=== PATIENT | male | born 1990 | race African-American/Black ===

== ENCOUNTER 2019-02-25 10:41 | Day surgery (SDC) | payer MEDICAID ==
[2019-02-25] MEDS ORDERED: LIDOCAINE 2% INJ-PF (100 MG/5 ML) SYRINGE ONE (11:25)
[2019-02-25] MEDS ORDERED: MIDAZOLAM 2 MG/2 ML INJ ONE (11:26)
[2019-02-25] MEDS ORDERED: PROPOFOL INJ 200 MG/20 ML VIAL IV ONE (11:26)
[2019-02-25] MEDS ORDERED: KETAMINE HCL INJ 500 MG/10 ML VIAL ONE (11:26)
[2019-02-25] MEDS ORDERED: FENTANYL CITRATE INJ/PF 100 MCG/2 ML AMPUL ONE (11:26)
[2019-02-25] MEDS ORDERED: LIDOCAINE 2%/EPINEPHRINE INJ 1.7 ML CARTRIDGE ONE (12:45)
[2019-02-25] MEDS ORDERED: BUPIVACAINE HCL 0.5%/EPI 1:200000 INJ 1.8 ML CARTRIDGE ONE (12:46)
[2019-02-25] MEDS ORDERED: OXYMETAZOLINE HCL 0.05% NASAL SPRAY 15 ML BOTTLE ONE (13:05)
[2019-02-25] MEDS ORDERED: FENTANYL CITRATE INJ/PF 100 MCG/2 ML AMPUL IV PRN ×3 (13:33)
[2019-02-25] MEDS ORDERED: DIPHENHYDRAMINE HCL 50 MG/ML VIAL IV PRN (13:33)
[2019-02-25] MEDS ORDERED: MORPHINE SULFATE 10 MG/ML INJ IV PRN (13:33)
[2019-02-25] MEDS ORDERED: MEPERIDINE HCL/PF INJ 25 MG/1 ML DISP.SYRIN IV PRN (13:33)
[2019-02-25] MEDS ORDERED: PROMETHAZINE HCL INJ 25 MG/1 ML VIAL IV PRN ×2 (13:33)
[2019-02-25] MEDS ORDERED: ONDANSETRON HCL INJ/PF 4 MG/2 ML SDV ONE (13:44)
[2019-02-25] MEDS ORDERED: SUCCINYLCHOLINE CHLORIDE INJ 200 MG/10 ML VIAL ONE (13:44)
[2019-02-25] MEDS ORDERED: DEXAMETHASONE SOD PHOSPHATE INJ 4 MG/1 ML VIAL ONE (13:44)
--- NOTE | 2019-02-25 14:22 | Operative Report ---
Operative Report DATE OF SURGERY: 02/25/19 PREOPERATIVE DIAGNOSIS: Dental caries POSTOPERATIVE DIAGNOSIS: Same OPERATION: Surgical removal of teeth numbers 2, 3, 4, 5, 6, 9, 10, 11, 12, 13, 14, 20, 21, 22, 23, 25, 26, 27 and 28 and alveoloplasties of all 4 quadrants SURGEON: VIMAL LOW ANESTHESIA: GA TISSUE REMOVED OR ALTERED: Teeth and bone which were discarded COMPLICATIONS: None ESTIMATED BLOOD LOSS: 5 mL INTRAOPERATIVE FINDINGS: Nonrestorable teeth and poor oral hygiene PROCEDURE: The patient was brought into operating room #4 and placed on the operating room table in supine position. General anesthesia was induced via a peripheral IV and continued utilizing nasoendotracheal intubation. The patient was then prepped and draped in the usual fashion for an intraoral procedure. A total of 4 carpules of 2% Lidocaine with 1:100K Epi and 4 carpules of 0.5% Marcaine with 1:200K Epi were delivered to the planned surgical sites via both infiltration and nerve block. The oral cavity and oropharynx were suctioned and a moistened oropharyngeal throat pack was placed. A bite block was used throughout the procedure. Full thickness mucoperisteal flaps were elevated. Ostectomy was completed as needed. Teeth were delivered with elevators and forceps. Alveoloplasties were completed using rongeurs and bone files. All sites debrided and irrigated. No sinus exposure noted. Mandible intact post op. KIM not visualized. Wounds reapproximated and sutured with 4-0 chromic gut. The oral cavity was suctioned and found to be free of debris. The throat pack was removed. The oropharynx was suctioned. Gauze packs were placed bilaterally to aid in continued hemastasis. The patient was awakened from general anesthesia, extubated in the operating room and taken to recovery in spontaneous breathing fashion.
[2019-02-25] MEDS: FENTANYL CITRATE INJ/PF 100 MCG/2 ML AMPUL ONE ×2 (14:50→14:55)
[2019-02-25] MEDS ORDERED: OXYCODONE-ACETAMINOPHEN 5-325 MG TABLET PO PRN (15:03)
[2019-02-25 16:15] VITALS: BP 131/89
== END 2019-02-25 16:20 | disposition home or self-care (01) ==
LOC: OROUT 10:41
PROVIDERS: ATTEND Dentist Oral and Maxillofacial Surgery
DX: K02.9 Dental caries, unspecified (principal); K08.89 Other specified disorders of teeth and supporting structures
CPT/HCPCS: 00170; 41899; 41874 ×4; J2250; J3490 ×3; J1100; J3010; J2001; J0330; J2405; J2704; 170